=== PATIENT | female | born 1980 | race Caucasian/White ===

== ENCOUNTER 2021-04-14 05:21 | Emergency (ER) | payer OTHER ==
[~2021-04-14] VITALS: Ht 172.7 cm; Wt 240.0 kg
[~2021-04-14 05:21] MED LIST: AMOXICILLIN875 MG OR; LEVAQUIN750 MG PO; LEVOTHYROXIN100 MC1 PO; LORTAB5 PO; TESSALON PER100 MG PO; XANAX0.5 MG PO
[2021-04-14 06:40] VITALS: BP 138/88
== END 2021-04-14 06:46 | disposition home or self-care (01) | DRG 921 ==
LOC: ED 05:21
DX: T81.31XA Disruption of external operation (surgical) wound, not elsewhere classified, initial encounter (principal); F17.200 Nicotine dependence, unspecified, uncomplicated; Y83.8 Other surgical procedures as the cause of abnormal reaction of the patient, or of later complication, without mention of misadventure at the time of the procedure

== ENCOUNTER 2022-11-27 13:46 | Emergency (ER) | payer OTHER ==
[~2022-11-27] VITALS: Ht 172.7 cm; Wt 125.0 kg
[2022-11-27] VITALS (7 sets, daily range): BP systolic 126–146; BP diastolic 52–103
== END 2022-11-27 15:15 | disposition home or self-care (01) | DRG 195 ==
LOC: ED 13:46
DX: J10.1 Influenza due to other identified influenza virus with other respiratory manifestations (principal); F17.200 Nicotine dependence, unspecified, uncomplicated; Z20.822 Contact with and (suspected) exposure to COVID-19